=== PATIENT | female | born 1950 | race Caucasian/White ===

== ENCOUNTER 2024-10-06 21:41 | Emergency (ER) | payer MEDICARE, BC ==
[2024-10-06] MEDS ORDERED: Ondansetron 4 MG Tab.DIS PO ONE (21:42)
[2024-10-06 21:58] LABS: HEMATOCRIT 49.2 % (34.2-48.2); HEMOGLOBIN 16.8 g/dL (11.4-15.5); MEAN CORPUSCULAR HEMOGLOBIN 31.7 pg (23.9-33.9); MEAN CORPUSCULAR HGB CONC 34.2 g/dL (31.9-34.8); MEAN CORPUSCULAR VOLUME 92.6 fL (76.7-100.5); MEAN PLATELET VOLUME 9.1 fL (7.1-12.4); PLATELET COUNT,PLT 322 x10(3)uL (151-488); RED BLOOD CELL COUNT 5.31 x10(6)uL (3.60-5.20); RED CELL DISTRIBUTION WIDTH 13.6 % (12.3-16.5); WHITE BLOOD CELL COUNT,WBC 9.5 x10-3/uL (3.0-10.3)
[2024-10-06 22:03] LABS: BLOOD UREA NITROGEN,BUN 22 mg/dL (7-18); CALCIUM 9.7 mg/dL (8.6-10.2); CARBON DIOXIDE,CO2 25 mmol/L (21-32); CHLORIDE,CL 101 mmol/L (100-110); CREATININE 1.1 mg/dL (0.55-1.02); ESTIMATED GFR 53 mL/min (>60); GLUCOSE RANDOM 202 mg/dL (80-116); POTASSIUM,K 3.8 mmol/L (3.5-5.3); SODIUM,NA 139 mmol/L (135-145)
[2024-10-06 22:09] LABS: A/G RATIO 1.1; ALANINE AMINOTRANSFERASE,ALT 68 U/L (12-36); ALBUMIN 4.2 g/dL (3.2-4.6); ALKALINE PHOSPHATASE 53 IU/L (56-112); ASPARTATE AMNIOTRANSFERASE,AST 43 IU/L (5-25); BILIRUBIN TOTAL 0.8 mg/dL (0.1-1.3); PROTEIN TOTAL,TP 8.2 g/dL (6.0-8.0)
[2024-10-06 22:11] LABS: TROPONIN I 5.6 pg/mL (4.0-60.3)
[2024-10-06 22:20] LABS: LYMPHOCYTES PERCENT MAN 10 % (13-37); MONOCYTES PERCENT MAN 3 % (4-12); SEG NEUTROPHILS PERCENT MAN 87 % (46-82)
[2024-10-06] MEDS: Ondansetron 4 MG Tab.DIS PO ONE (22:37)
== END 2024-10-06 23:52 | disposition home or self-care (01) ==
LOC: FB.ED 21:41
DX: K52.9 Noninfective gastroenteritis and colitis, unspecified (principal); Z88.8 Allergy status to other drugs, medicaments and biological substances
CPT/HCPCS: 36415; 80053; 83690; 84484; 85025; 93005; 93010; 99283; 99284; Q0162